=== PATIENT | female | born 1995 | race African-American/Black ===

== ENCOUNTER 2018-04-06 15:50 | Emergency (ER) | payer OTHER, SELFPAY ==
[2018-04-06] MEDS ORDERED: Fluorescein Opthalmic Strip ONE (16:17)
[2018-04-06] MEDS ORDERED: Proparacaine 0.5% Opth 15 ML BOT ONE (16:17)
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
[2018-04-06] MEDS ORDERED: Ibuprofen 800 MG TAB ONE (17:22)
== END 2018-04-06 17:24 | disposition home or self-care (01) ==
LOC: ERS 15:50
DX: S00.12XA Contusion of left eyelid and periocular area, initial encounter (principal); F32.9 Major depressive disorder, single episode, unspecified; Y04.0XXA Assault by unarmed brawl or fight, initial encounter
CPT/HCPCS: 70486

== ENCOUNTER 2018-09-25 02:48 | Emergency (ER) | payer SELFPAY | END 2018-09-25 03:08 | disposition home or self-care (01) | LOC: ERS 02:48 | DX: S01.01XA Laceration without foreign body of scalp, initial encounter (principal); F32.9 Major depressive disorder, single episode, unspecified; V86.59XA Driver of other special all-terrain or other off-road motor vehicle injured in nontraffic accident, initial encounter | CPT/HCPCS: 99283 ==

== ENCOUNTER 2018-10-04 14:44 | Emergency (ER) | payer SELFPAY | END 2018-10-04 17:07 | disposition left against medical advice (07) | LOC: ERS 14:44 | DX: Z53.21 Procedure and treatment not carried out due to patient leaving prior to being seen by health care provider (principal) ==

== ENCOUNTER 2018-10-06 14:53 | Emergency (ER) | payer SELFPAY ==
[2018-10-06 15:37] LABS: BHCG - Serum Negative (NEGATIVE); Pregs Control Background? CLEAR/WHITE (CLR/WHITE); Pregs Control Bar Appear? YES (CONTROL BAR)
[2018-10-06 16:55] LABS: Bilirubin Negative (Negative); Blood, Urine Large (Negative); Clarity Slightly Cloudy (Clear); Glucose, Urine (Dipstick) Negative (Negative); Leukocyte Small (Negative); Nitrite Positive (Negative); Protein, Urine (Dipstick) > or equal to 300 mg/dL (Neg-Trace); Urobilinogen 0.2 mg/dL (0.2-1.0); pH, Urine 7.5 (5.0-9.0)
[2018-10-06 16:57] LABS: Other Microscopic Description Less than 2 mL rec'd
[2018-10-06 16:58] LABS: Bacteria/HPF 1+ HPF (None Seen); Hyaline Casts/LPF NONE SEEN LPF (0-3 Hyaline); Squamous Epithelial None Seen HPF (0-3)
[2018-10-08 21:54] LABS: Chlamydia by PCR Not Detected (NotDetected); GC by PCR Not Detected (NotDetected)
== END 2018-10-06 17:29 | disposition home or self-care (01) ==
LOC: ERS 14:53
DX: N39.0 Urinary tract infection, site not specified (principal); N93.9 Abnormal uterine and vaginal bleeding, unspecified; F32.9 Major depressive disorder, single episode, unspecified
CPT/HCPCS: 36415; 51701; 81003; 81015; 84703; 87086; 87186; 87480; 87491; 87510; 87591; 87660

== ENCOUNTER 2019-11-10 10:33 | Emergency (ER) | payer OTHER ==
[2019-11-11 14:31] LABS: SARS-CoV-2 MS2 Positive; SARS-CoV-2 N Gene Negative; SARS-CoV-2 S Gene Negative; SARS-CoV-2 orf1ab Negative
== END 2019-11-10 11:21 | disposition home or self-care (01) ==
LOC: ERS 10:33
DX: Z20.828 Contact with and (suspected) exposure to other viral communicable diseases (principal); F32.9 Major depressive disorder, single episode, unspecified
CPT/HCPCS: 87635; 99283; U0003

== ENCOUNTER 2020-03-19 18:21 | Emergency (ER) | payer OTHER ==
--- NOTE | 2020-03-19 19:05 | RAD ---
TWO VIEWS OF THE RIGHT TIBIA/FIBULA: 03/19/20 COMPARISON: None. HISTORY: Fall with right leg pain. FINDINGS: Two views of the right tibia and fibula shows no evidence of acute fracture shows no evidence of acut e fracture or dislocation. No soft tissue swelling is seen. No degenerative changes are present. IMPRESSION: Unremarkable exam. POS: [facility]
[2020-03-19] MEDS ORDERED: Ketorolac Tromethamine 30 MG/ML VIAL ONE (19:24)
== END 2020-03-19 19:52 | disposition home or self-care (01) ==
LOC: ERS 18:21
DX: S80.11XA Contusion of right lower leg, initial encounter (principal); M79.605 Pain in left leg; F32.9 Major depressive disorder, single episode, unspecified; F17.290 Nicotine dependence, other tobacco product, uncomplicated; W22.8XXA Striking against or struck by other objects, initial encounter
CPT/HCPCS: 96372; J1885

== ENCOUNTER 2020-06-18 08:06 | Outpatient (CLI) | payer OTHER ==
--- NOTE | 2020-06-18 08:28 | ULT ---
US Breast Limited Lt: 06/18/2020 12:00 AM CLINICAL INDICATION: Palpable breast mass in the left breast at 2:00. COMPARISON: None. TECHNIQUE: Multiplanar grayscale and color Doppler images were obtained of the breast. FINDINGS: Normal appearing parenchyma is seen. No suspicious mass is seen. No suspicious shadowing is seen. No cyst is identified. IMPRESSION: BI-RADS Category 1-negative. Annual screening mammography is recommended at the age of 40 .
== END 2020-06-18 08:07 | disposition home or self-care (01) ==
LOC: BICULT 08:06
PROVIDERS: ATTEND Nurse Practitioner Women's Health
DX: N63.21 Unspecified lump in the left breast, upper outer quadrant (principal)

== ENCOUNTER 2020-08-02 17:44 | Emergency (ER) | payer OTHER | END 2020-08-02 19:06 | disposition home or self-care (01) | LOC: ERS 17:44 | DX: B34.9 Viral infection, unspecified (principal); F17.290 Nicotine dependence, other tobacco product, uncomplicated | CPT/HCPCS: 71045 ==

== ENCOUNTER 2020-08-09 21:45 | Emergency (ER) | payer OTHER ==
[2020-08-10 07:02] LABS: SARS-CoV-2 PCR by NAA Not Detected (NotDetected)
== END 2020-08-09 23:32 | disposition home or self-care (01) ==
LOC: ERS 21:45
DX: R09.81 Nasal congestion (principal); R05 Cough; Z20.822 Contact with and (suspected) exposure to COVID-19; F17.290 Nicotine dependence, other tobacco product, uncomplicated
CPT/HCPCS: 87635; 99283; U0003; U0005

== ENCOUNTER 2022-04-02 16:21 | Emergency (ER) | payer OTHER ==
[2022-04-02] MEDS ORDERED: HYDROcodone/Acetaminophen 5/325 mg Tablet ONE (16:49)
[2022-04-02] MEDS ORDERED: Lidocaine 1% PF 5 ML VIAL ONE (16:49)
== END 2022-04-02 17:20 | disposition home or self-care (01) ==
LOC: ERS 16:21
DX: S60.141A Contusion of right ring finger with damage to nail, initial encounter (principal); F17.290 Nicotine dependence, other tobacco product, uncomplicated; V49.9XXA Car occupant (driver) (passenger) injured in unspecified traffic accident, initial encounter
CPT/HCPCS: 11740

== ENCOUNTER 2022-06-04 10:49 | Emergency (ER) | payer OTHER ==
[2022-06-04 11:18] LABS: #Basophils 0.1 thou/uL (0.0-0.2); #Eosinphils 0.1 thou/uL (0.0-0.7); #Lymphocytes 2.8 thou/uL (1.20-3.40); #Monocytes 0.9 thou/uL (0.11-0.59); #Neutrophils 3.4 thou/uL (1.40-6.50); %Basophils 1.1 % (0.0-1.0); %Eosinophils 1.1 % (0.0-10.0); %Lymphocytes 39.4 % (21.0-51.0); %Monocytes 11.9 % (0.0-10.0); %Neutrophils 46.5 % (42.0-75.0); Hemoglobin 12.8 g/dL (12.0-16.0); Mean Corpuscular HGB CONC 36.2 g/dL (32.0-36.0); Mean Corpuscular Hemoglobin 31.2 pg (27.0-31.0); Mean Corpuscular Volume 86.3 fl (78.0-98.0); Mean Platelet Volume 8.8 fL (7.4-10.4); Platelet Count 251 10x3/uL (130-400); RBC Distribution Width 12.2 % (11.5-14.5); White Blood Cell (WBC) Count 7.2 10x3/uL (4.8-10.8)
[2022-06-04] MEDS ORDERED: Acetaminophen 325 MG TAB ONE (11:23)
[2022-06-04 11:27] LABS: BHCG - Serum Negative (NEGATIVE); Pregs Control Background? CLEAR/WHITE (CLR/WHITE); Pregs Control Bar Appear? YES (CONTROL BAR)
[2022-06-04 11:35] LABS: ALT (SGPT) 47 U/L (8-55); AST (SGOT) 28 U/L (5-34); Albumin 4.2 g/dL (3.5-5.0); Alkaline Phosphatase 94 U/L (40-110); Anion Gap 13 mmol/L (10-20); BUN (Urea Nitrogen) 11 mg/dL (7.0-18.7); Bilirubin, Total 0.5 mg/dL (0.2-1.2); Calc. Creatinine Clearance 0 mL/min (70-130); Calcium 9.2 mg/dL (7.8-10.44); Carbon Dioxide 22 mmol/L (22-29); Chloride 108 mmol/L (98-107); Estimated GFR 125; Globulin 3.2 g/dL (2.4-3.5); Glucose 77 mg/dL (70-105); Lipase 15 U/L (8-78); Potassium 4.1 mmol/L (3.5-5.1); Protein, Total 7.4 g/dL (6.0-8.3); Sodium 139 mmol/L (136-145)
[2022-06-04 12:02] LABS: Bacteria/HPF None Seen HPF (None Seen); Bilirubin Negative (Negative); Blood, Urine 3+ (Negative); Glucose, Urine (Dipstick) Normal (Negative); Ketone, Urine Negative (Negative); Leukocyte Negative Leu/uL (Negative); Nitrite Negative (Negative); Protein, Urine (Dipstick) Negative (Neg-Trace); RBC/HPF Greater than 50 HPF (0-3); Specific Gravity, Urine 1.019 (1.002-1.036); Squamous Epithelial 0-3 HPF (0-3); Urobilinogen Normal mg/dL (Less than 2); WBC/HPF 0-3 HPF (0-3)
[2022-06-04 12:03] LABS: Clarity Hazy (Clear)
== END 2022-06-04 13:26 | disposition home or self-care (01) ==
LOC: ERS 10:49
DX: N93.9 Abnormal uterine and vaginal bleeding, unspecified (principal); J02.9 Acute pharyngitis, unspecified; F17.210 Nicotine dependence, cigarettes, uncomplicated
CPT/HCPCS: 36415; 76856; 80053; 81003; 81015; 83690; 84703; 85025; 93976; 99284

== ENCOUNTER 2022-06-20 08:46 | Emergency (ER) | payer OTHER ==
[2022-06-20] MEDS ORDERED: cefTRIAXone\\ROCEPHIN 500 MG VIAL ONE (09:36)
[2022-06-20] MEDS ORDERED: Lidocaine 1% MPF 2 ML VIAL ONE (09:37)
[2022-06-20 09:42] LABS: Bilirubin Negative (Negative); Blood, Urine Trace (Negative); Clarity Turbid (Clear); Glucose, Urine (Dipstick) Normal (Negative); Ketone, Urine Trace mg/dL (Negative); Leukocyte Negative Leu/uL (Negative); Nitrite Negative (Negative); Protein, Urine (Dipstick) 300 mg/dL (Neg-Trace); Specific Gravity, Urine 1.033 (1.002-1.036)
[2022-06-20 09:43] LABS: Bacteria/HPF 1+ HPF (None Seen); Pregnancy Test - Urine (BHCG) Negative (Negative); Pregu Control Background? CLEAR/WHITE (CLR/WHITE); Pregu Control Bar Appear? YES (CONTROL BAR); Specific Gravity 1.033 (1.002-1.036)
== END 2022-06-20 10:44 | disposition home or self-care (01) ==
LOC: ERS 08:46
DX: N76.0 Acute vaginitis (principal); F17.210 Nicotine dependence, cigarettes, uncomplicated
CPT/HCPCS: 81003; 81015; 81025; 87480; 87510; 87660; 96372; 99283; J0696

== ENCOUNTER 2023-10-11 11:22 | Emergency (ER) | payer OTHER | END 2023-10-11 12:30 | disposition home or self-care (01) | LOC: ERS 11:22 | DX: S63.602A Unspecified sprain of left thumb, initial encounter (principal); Y04.0XXA Assault by unarmed brawl or fight, initial encounter ==